=== PATIENT | female | born 1980 | race Caucasian/White ===

== ENCOUNTER → 2017-05-08 | Outpatient (CLI) | payer MEDICAID ==
[2014-10-13 14:10] VITALS: BP 124/87
[~2017-05-08] MED LIST: BENTYL; CLINDAMYCIN300 MG PO; IBU-200200 MG PO; LISINOPRIL5 MG PO; NO HOME MEDICATIONS; ULTRAM50 MG PO
[2017-05-08 12:59] LABS: EOS # 0.2 (0.04-0.40); EOS % 2.3 % (1.0-5.0); HEMATOCRIT 42.4 % (37.0-47.0); HEMOGLOBIN 13.8 g/dL (12.5-16.0); LYMPH# 2.5 (1.50-4.00); MEAN CELL VOLUME 82 fl (78-100); MEAN CORPUSCULAR HEMOGLOBIN 27 pg (27-31); MEAN CORPUSCULAR HGB CONC 33 g/dL (33-37); MEAN PLATELET VOLUME 11.1 fl (7.4-10.4); MONO # 0.6 (0.20-0.80); NEU # 4.1 (1.40-6.50); PLATELET COUNT 287 K/mm3 (130-400); RED BLOOD COUNT 5.16 M/mm3 (4.10-5.30); RED CELL DISTRIBUTION WIDTH 14.1 % (11.5-14.5); WHITE BLOOD COUNT 7.5 K/mm3 (4.8-10.8)
== END ==
LOC: LAB 11:54
PROVIDERS: Internal Medicine Pulmonary Disease
DX: R06.02 Shortness of breath (principal)

== ENCOUNTER → 2017-08-14 | Outpatient (CLI) | payer MEDICAID ==
[2014-10-13 14:10] VITALS: BP 124/87
[2017-08-14 10:29] LABS: BUN/CREATININE RATIO 12.9 (6.0-26.0); CALCIUM 9.3 mg/dL (8.4-10.2); POTASSIUM 3.6 mmol/L (3.6-5.0)
== END ==
LOC: LAB 10:02
PROVIDERS: Nurse Practitioner Family
DX: I10 Essential (primary) hypertension (principal); Z86.39 Personal history of other endocrine, nutritional and metabolic disease; R25.2 Cramp and spasm

== ENCOUNTER → 2017-09-06 | Outpatient (CLI) | payer MEDICAID ==
[2014-10-13 14:10] VITALS: BP 124/87
[2017-09-06 09:46] LABS: EOS # 0.1 (0.04-0.40); EOS % 0.8 % (1.0-5.0); HEMOGLOBIN 13.4 g/dL (12.5-16.0); LYMPH# 2.8 (1.50-4.00); MEAN CELL VOLUME 84 fl (78-100); MEAN CORPUSCULAR HEMOGLOBIN 27 pg (27-31); MEAN CORPUSCULAR HGB CONC 32 g/dL (33-37); MONO # 0.5 (0.20-0.80); NEU # 2.9 (1.40-6.50); PLATELET COUNT 273 K/mm3 (130-400); RED BLOOD COUNT 5.02 M/mm3 (4.10-5.30); RED CELL DISTRIBUTION WIDTH 15.3 % (11.5-14.5); WHITE BLOOD COUNT 6.2 K/mm3 (4.8-10.8)
[2017-09-06 10:48] LABS: ERYTHROCYTE SEDIMENTATION RATE 9 mm/hr (0-20)
[2017-09-07 10:58] LABS: ALBUMIN 3.9 g/dL (3.5-5.0); BUN/CREATININE RATIO 13.8 (6.0-26.0); CALCIUM 9.1 mg/dL (8.4-10.2); POTASSIUM 3.6 mmol/L (3.6-5.0); TOTAL BILIRUBIN 0.3 mg/dL (0.2-1.3)
[2017-09-08 00:30] LABS: ANA SCREEN with REFLEX Negative (Negative)
== END ==
LOC: LAB 09:36
PROVIDERS: Internal Medicine Pulmonary Disease
DX: J98.4 Other disorders of lung (principal)

== ENCOUNTER → 2018-04-11 | Outpatient (CLI) | payer MEDICAID ==
[2014-10-13 14:10] VITALS: BP 124/87
[2018-04-11 13:49] LABS: EOS # 0.2 (0.04-0.40); EOS % 1.9 % (1.0-5.0); HEMATOCRIT 43.5 % (37.0-47.0); HEMOGLOBIN 14.4 g/dL (12.5-16.0); LYMPH# 2.6 (1.50-4.00); MEAN CELL VOLUME 84 fl (78-100); MEAN CORPUSCULAR HEMOGLOBIN 28 pg (27-31); MEAN CORPUSCULAR HGB CONC 33 g/dL (33-37); MEAN PLATELET VOLUME 11.3 fl (7.4-10.4); MONO # 0.7 (0.20-0.80); PLATELET COUNT 287 K/mm3 (130-400); RED BLOOD COUNT 5.17 M/mm3 (4.10-5.30); WHITE BLOOD COUNT 8.5 K/mm3 (4.8-10.8)
[2018-04-11 14:11] LABS: ALBUMIN 4.7 g/dL (3.5-5.0); CALCIUM 9.4 mg/dL (8.4-10.2); TOTAL BILIRUBIN 0.6 mg/dL (0.2-1.3); TOTAL PROTEIN 7.9 g/dL (6.3-8.2)
== END ==
LOC: LAB 11:15
PROVIDERS: Family Medicine
DX: Z01.419 Encounter for gynecological examination (general) (routine) without abnormal findings (principal); E03.9 Hypothyroidism, unspecified; R53.83 Other fatigue; R73.9 Hyperglycemia, unspecified

== ENCOUNTER 2018-06-01 20:00 | Emergency (ER) | payer MEDICAID ==
[~2018-06-01] VITALS: Ht 167.6 cm; Wt 94.5 kg
[2018-06-01 20:25] VITALS: BP 140/89
[2018-06-01] MEDS ORDERED: REQUIP 0.5MG0.5 MG PO (22:17)
[2018-06-01] MEDS ORDERED: SYMBICORT1 AE3 IH (22:18)
[2018-06-01] MEDS ORDERED: ZANTAC150 M1 PO (22:18)
[2018-06-01] MEDS ORDERED: COMBIVENT RESPI1 SPR IH (22:19)
[2018-06-01] MEDS ORDERED: PIRMELLA 1/351 TAB PO (22:19)
[2018-06-01] MEDS ORDERED: ACETAZOLAMIDE125 M1 PO (22:20)
[2018-06-01] MEDS ORDERED: PROZAC10 M2 PO (22:20)
== END 2018-06-01 21:35 | disposition home or self-care (01) ==
LOC: ED 20:00
DX: M79.662 Pain in left lower leg (principal); E11.9 Type 2 diabetes mellitus without complications; I10 Essential (primary) hypertension; Z79.899 Other long term (current) drug therapy

== ENCOUNTER 2018-06-30 08:41 | Emergency (ER) | payer MEDICAID ==
[~2018-06-30] VITALS: Ht 165.1 cm; Wt 93.2 kg
[~2018-06-30 08:41] MED LIST changes: +ACETAZOLAMIDE125 M1 PO; +COMBIVENT RESPI1 SPR IH; +PIRMELLA 1/351 TAB PO; +PROZAC10 M2 PO; +REQUIP 0.5MG0.5 MG PO; +SYMBICORT1 AE3 IH; +ZANTAC150 M1 PO
[2018-06-30] MEDS ORDERED: NORCO 325 MG-51 TA1 PO (08:56)
[2018-06-30] MEDS ORDERED: MELOXICAM15 MG PO (09:27)
[2018-06-30 09:34] VITALS: BP 126/78
== END 2018-06-30 09:33 | disposition home or self-care (01) ==
LOC: ED 08:41
DX: M76.62 Achilles tendinitis, left leg (principal); Z79.899 Other long term (current) drug therapy; F32.9 Major depressive disorder, single episode, unspecified

== ENCOUNTER → 2018-12-07 | Outpatient (CLI) | payer MEDICAID ==
[~2018-12-07] MED LIST changes: +MELOXICAM15 MG PO; +NORCO 325 MG-51 TA1 PO
== END ==
LOC: RAD 14:02
DX: J98.4 Other disorders of lung (principal)

== ENCOUNTER → 2019-06-14 | Outpatient (CLI) | payer MEDICAID ==
[2019-06-14 11:38] LABS: EOS # 0.3 (0.04-0.40); HEMATOCRIT 43.7 % (37.0-47.0); HEMOGLOBIN 14.1 g/dL (12.5-16.0); LYMPH# 2.5 (1.50-4.00); MEAN CELL VOLUME 85 fl (78-100); MEAN CORPUSCULAR HEMOGLOBIN 28 pg (27-31); MEAN CORPUSCULAR HGB CONC 32 g/dL (33-37); MEAN PLATELET VOLUME 9.8 fl (7.4-10.4); MONO # 0.7 (0.20-0.80); PLATELET COUNT 295 K/mm3 (130-400); RED BLOOD COUNT 5.13 M/mm3 (4.10-5.30); WHITE BLOOD COUNT 8.5 K/mm3 (4.8-10.8)
[2019-06-14 11:49] LABS: ALBUMIN 4.1 g/dL (3.5-5.0); POTASSIUM 4.2 mmol/L (3.5-5.1)
[2019-06-14 11:50] LABS: CALCIUM 9.4 mg/dL (8.3-10.5)
[2019-06-14 11:51] LABS: TOTAL PROTEIN 7.2 g/dL (6.4-8.3)
[2019-06-14 11:53] LABS: TOTAL BILIRUBIN 0.3 mg/dL (0.2-1.2)
[2019-06-14 12:20] LABS: PROTHROMBIN TIME 8.9 SECONDS (9.0-12.0)
== END ==
LOC: LAB 11:16
PROVIDERS: Family Medicine
DX: Z00.00 Encounter for general adult medical examination without abnormal findings (principal); D68.51 Activated protein C resistance; E78.5 Hyperlipidemia, unspecified

== ENCOUNTER 2019-07-01 13:53 | Emergency (ER) | payer MEDICAID ==
[2019-07-01] MEDS ORDERED: OMEPRAZOLE40 MG PO (14:14)
[2019-07-01] MEDS ORDERED: TRAMADOL 50 MG TAB PO (14:14)
[2019-07-01] MEDS ORDERED: PREDNISONE10 MG PO (14:14)
[2019-07-01] MEDS ORDERED: FLUOXETINE HCL20 MG PO (14:14)
[2019-07-01] MEDS ORDERED: LISINOPRIL10 MG PO (14:15)
[2019-07-01] MEDS ORDERED: AMITRIPTYLINE H25 M2 PO (14:15)
[2019-07-01] MEDS ORDERED: TRIAMCINOLONE AC0.13 TP (14:30)
[2019-07-01] MEDS ORDERED: PREDNISONE20 M1 PO (14:30)
[2019-07-01 14:37] VITALS: BP 134/91
== END 2019-07-01 14:34 | disposition home or self-care (01) ==
LOC: ED 13:53
DX: L27.0 Generalized skin eruption due to drugs and medicaments taken internally (principal); T45.515A Adverse effect of anticoagulants, initial encounter; I10 Essential (primary) hypertension; F41.9 Anxiety disorder, unspecified; F32.9 Major depressive disorder, single episode, unspecified

== ENCOUNTER → 2019-07-08 | Outpatient (CLI) | payer MEDICAID ==
[2019-07-01 14:37] VITALS: BP 134/91
[~2019-07-08] MED LIST changes: +AMITRIPTYLINE H25 M2 PO; +FLUOXETINE HCL20 MG PO; +LISINOPRIL10 MG PO; +OMEPRAZOLE40 MG PO; +PREDNISONE10 MG PO; +PREDNISONE20 M1 PO; +TRAMADOL 50 MG TAB PO; +TRIAMCINOLONE AC0.13 TP
[2019-07-08 17:37] LABS: EOS # 0.2 (0.04-0.40); EOS % 1.3 % (1.0-5.0); HEMATOCRIT 49.9 % (37.0-47.0); HEMOGLOBIN 16.1 g/dL (12.5-16.0); LYMPH# 3.5 (1.50-4.00); MEAN CELL VOLUME 84 fl (78-100); MEAN CORPUSCULAR HEMOGLOBIN 27 pg (27-31); MEAN CORPUSCULAR HGB CONC 32 g/dL (33-37); MEAN PLATELET VOLUME 9.9 fl (7.4-10.4); MONO # 0.9 (0.20-0.80); NEU # 8.3 (1.40-6.50); PLATELET COUNT 366 K/mm3 (130-400); RED BLOOD COUNT 5.93 M/mm3 (4.10-5.30)
[2019-07-12 07:30] LABS: AUREOBASIDIUM PULLULANS CNT <0.35 kU/L (<0.35)
[2019-07-12 07:31] LABS: ALTERNARIA TENUIS CNT <0.35 kU/L (<0.35); ASPERGILLUS FUMIGATUS AL COUNT <0.35 kU/L (<0.35); CANDIDA ALBICANS ALLERGN COUNT <0.35 kU/L (<0.35); CLADOSPORIUM ALLERGEN COUNT <0.35 kU/L (<0.35); EPICOCCUM PURPURANCEN AL COUNT <0.35 kU/L (<0.35); FUSARIUM MONILIFORME ALL COUNT <0.35 kU/L (<0.35); MUCOR RACEMOSUS ALLERGEN COUNT <0.35 kU/L (<0.35); PENICILLIUM NOTATUM ALLR COUNT <0.35 kU/L (<0.35); PHOMA BETAE ALLERGEN COUNT <0.35 kU/L (()); STEMPHYLIUM BOTRYOSUM AL COUNT <0.35 kU/L (<0.35)
== END ==
LOC: LAB 16:44
PROVIDERS: Family Medicine
DX: J30.9 Allergic rhinitis, unspecified (principal); R21 Rash and other nonspecific skin eruption